=== PATIENT | male | born 1940 | race Caucasian/White ===

== ENCOUNTER 2023-02-12 09:19 | Emergency (ER) | payer MEDICARE, BC, SELFPAY ==
[2023-02-12 09:29] VITALS: BP 118/66; PULSE 55; RESP 18; TEMP 36.7; O2SAT 95; BMI 26.6
--- NOTE | 2023-02-12 10:22 | ED_ITS ---
HPI - General Adult General Date Seen: 02/12/23 Chief complaint: Skin/Abscess/Foreign Body Stated complaint: infection in back Time Seen by Provider: 02/12/23 09:47 History of Present Illness HPI narrative: This is a generally healthy robust 82-year-old male who presents to the ER today with his for concern of a painful draining reddened area on his left upper back/shoulder blade. He actually developed a swollen painful lump on his upper back approximately 2 weeks ago. It went from being normal to being swollen over the course of a day or 2. At the time this occurred they were actually visiting in [place]. They saw a doctor there. They underwent an incision and drainage and apparently the doctor expressed some pus out of the wound. A dressing was applied. They were told to monitor and follow up if it got worse. It sounds like they were not prescribed antibiotics. He says initially the wound was healing fairly well. However a couple of days ago began to become more swollen, more red in her more. Yesterday his was evaluated the wound and she was able to express some thick lump be pus from the wound. Since then it has still been red around the incision. It is painful. Other than that so painful area he has no symptoms. No body aches, no myalgias, no fever or chills, no weakness. He is not diabetic or immunosuppressed. No cancer. No history of immune system problems. No history of MRSA. Related Data Home Medications Medication Instructions Recorded Confirmed atorvastatin 40 mg tablet 40 mg PO DAILY 02/12/23 02/12/23 lisinopril 20 mg tablet 20 mg PO DAILY 02/12/23 02/12/23 Previous Rx's Medication Instructions Recorded cephalexin 500 mg capsule 500 mg PO TID 7 days #21 caps 02/12/23 sulfamethoxazole 800 1 tab PO BID 7 days #14 tabs 02/12/23 mg-trimethoprim 160 mg tablet (Bactrim DS) Allergies Allergy/AdvReac Type Severity Reaction Status Date / Time No Known Drug Allergies Allergy Verified 02/12/23 09:38 PFSH PFSH Social History Smoking Status: Never smoker Do you use any of these nicotine containing products: None Second hand tobacco smoke exposure: No How often do you have a drink containing alcohol: never AUDIT-C Alcohol total score: 0 Non-prescribed substance use: denies use service: Yes Exam Narrative: Exam Narrative: Constitutional: Appears well-developed and well-nourished. Alert. Conversant. Non toxic. Accompanied by his attentive . HENT: Head: Atraumatic. Nose: Nose normal. Mouth/Throat: Oral mucosa is clear and moist. no trismus. Pharynx normal. Tonsils symmetric. No tonsillar enlargement, erythema, or exudate. Eyes: Conjunctivae normal. EOM normal. Pupils equal, round, and reactive to light. No scleral icterus. Neck: Normal range of motion. Neck supple. No tracheal deviation present. Cardiovascular: Normal rate, regular rhythm. No gallop. No friction rub. No murmur heard. Symmetric radial artery pulses Pulmonary/Chest: Effort normal. No stridor. No respiratory distress. No wheezes. No rales. No rhonchi . Mild tenderness on the left scapula/posterior thoracic wall around the area where he had his incision and drainage. On the left upper back there is roughly a 2-3 cm linear incision. The wound edges gaping about 1 mm. There is a small amount of granulation tissue in the base of the wound but no purulent drainage. There is no palpable underlying fluctuance. There is surrounding erythema roughly 2-3 cm around the incision. Is mildly tender there. No crepitus or gas in the soft tissue. No dishwater drainage. Musculoskeletal: RUE: Normal range of motion. No tenderness. No deformity LUE: Normal range of motion. No tenderness. No deformity RLE: Normal range of motion. No edema. No tenderness. No deformity LLE: Normal range of motion. No edema. No tenderness. No deformity Neurological: Alert and oriented to person, place, and time. Normal strength. CN II-VII intact. No sensory deficit. GCS eye subscore is 4. GCS verbal subscore is 5. GCS motor subscore is 6. Normal coordination Skin: In addition to the left posterior chest wall wound. He also has a dressing over a smaller incision that apparently was recent excision of a sebaceous cyst. He has no redness or concern there. Skin is warm and dry. No rash noted. No pallor. Normal capillary refill. Psychiatric: Normal mood. Normal affect. Const: Vital Signs, click to edit/add: Vital Signs - 24 hr 02/12/23 09:29 Temperature 98.0 F Pulse Rate [Pulse Oximeter] 55 L Respiratory Rate 18 Blood Pressure [Ri ght Upper Arm] 118/66 Pulse Oximetry 95 Oxygen Delivery Me thod Room Air Course Vital Signs Vital signs: Initial Vital Signs Temperature 98.0 F 02/12/23 09:29 Temperature Source Temporal Artery Scan 02/12/23 09:29 Pulse Rate 55 L 02/12/23 09:29 Respiratory Rate 18 02/12/23 09:29 Blood Pressure 118/66 02/12/23 09:29 Blood Pressure Mean 83 02/12/23 09:29 Blood Pressure Position Sitting 02/12/23 09:29 Pulse Oximetry 95 02/12/23 09:29 Oxygen Delivery Method Room Air 02/12/23 09:29 Vital Signs Temperature 98.0 F 02/12/23 09:29 Pulse Rate 55 L 02/12/23 09:29 Respiratory Rate 18 02/12/23 09:29 Blood Pressure 118/66 02/12/23 09:29 Pulse Oximetry 95 02/12/23 09:29 Oxygen Delivery Method Room Air 02/12/23 09:29 Temperature 98.0 F 02/12/23 09:29 Pulse Rate 55 L 02/12/23 09:29 Respiratory Rate 18 02/12/23 09:29 Blood Pressure 118/66 02/12/23 09:29 Pulse Oximetry 95 02/12/23 09:29 Oxygen Delivery Method Room Air 02/12/23 09:29 Medical Decision Making MDM Narrative Medical decision making narrative: This patient presents with redness, pain affecting the skin of his left shoulder blade/left upper back. He had actually had a red swollen area that was incised and drained by his doctor in [place] couple of weeks ago. It had been getting better but now is getting red again. Concern here is for either a involving a cellulitis around the wound or possibly recurrent abscess formation.. No abscess cavity noted on exam. No concerning signs/sx's to suggest needs IV abx and admission. No high fever, systemic illness. Patient is immunocompetent. I do think he has a cellulitis of the skin surrounding the site of drainage. Plan outpt treatment with oral antibiotics. Will cover with cephalexin for typical staph and strep. Bactrim for possible MRSA. At this point there is no drainage from which we could obtain a culture. Needs close f/u of primary; if cannot arrange in 2-3 ays then needs to return to ER. Warning signs for wound given on discharge instructions and verbally; see d/c instructions. Pt agrees w/ abx and waiting to see resolution verses worsening. Precautions for return to the ER reviewed. Discharge Plan Discharge Clinical Impression: Abscess or cellulitis of back Patient Disposition: Home, Self-Care Condition: Stable Instructions: Cellulitis (ED), Abscess (ED) Additional Instructions: As we discussed, we suspect that your pain and redness are due to an infection of the skin around the abscess that your doctor drained. At this point I do not think there is any more fluid or pus inside the abscess to necessitate a repeat drainage procedure today. However we will treat your infection with a course of antibiotics. Monitor your condition carefully. If you are not completely improved within 2 or 3 days could please follow-up with your doctor. If her condition gets worse-such as increasing swelling, spreading redness, fevers, chills, body aches, weakness, or if you have any concerns, please come back to the ER right away. Prescriptions: New cephalexin 500 mg capsule 500 mg PO TID 7 Days Qty: 21 0RF sulfamethoxazole-trimethoprim [Bactrim DS] 800-160 mg tablet 1 tab PO BID 7 Days Qty: 14 0RF No Action atorvastatin 40 mg tablet 40 mg PO DAILY lisinopril 20 mg tablet 20 mg PO DAILY Stand Alone Forms: Archive Systemsth Info Instructions
== END 2023-02-12 10:35 | disposition home or self-care (01) ==
LOC: ED 10:32
PROVIDERS: Emergency Provider Emergency Medicine
DX: L03.312 Cellulitis of back [any part except buttock and flank] (principal)
CPT/HCPCS: 99283